=== PATIENT | female | born 2005 | race African-American/Black ===

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

== ENCOUNTER 2023-01-01 13:39 | Emergency (ER) | payer OTHER ==
[2023-01-01 13:44] VITALS: BP 104/74; PULSE 116; RESP 18; TEMP 98.2; BMI 23.3
== END 2023-01-01 16:30 | disposition left against medical advice (07) ==
LOC: JERFT 13:39
DX: O9A.211 Injury, poisoning and certain other consequences of external causes complicating pregnancy, first trimester (principal); S00.83XA Contusion of other part of head, initial encounter; R22.0 Localized swelling, mass and lump, head; H02.843 Edema of right eye, unspecified eyelid; H02.846 Edema of left eye, unspecified eyelid; Z3A.00 Weeks of gestation of pregnancy not specified
CPT/HCPCS: 70486-TC; 99284-25

== ENCOUNTER 2023-10-30 14:19 | Emergency (ER) | payer OTHER ==
[2023-10-30 14:44] VITALS: BP 105/66; PULSE 65; RESP 18; TEMP 98.6; BMI 22.8
[2023-10-30] MEDS ORDERED: ONDANSETRON 4 MG/2 ML VIAL ONE (16:04)
[2023-10-30] MEDS: ONDANSETRON 4 MG/2 ML VIAL IVPUSH ONE (16:52)
[2023-10-30 17:00] LABS: BASO % 0.4 % (0-2.0); EOS % 1.9 % (0-4.5); HEMATOCRIT 42.3 % (32.4-45.2); HEMOGLOBIN 14.1 GM/dL (10.7-15.3); LYMPH % 21.9 % (8-40); MCHC 33.4 g/dl (32.0-36.0); MEAN CELL VOLUME 80.9 fl (80-96); MEAN PLT VOLUME 7.6 fl (7.5-11.1); MONO % 7.8 % (3.8-10.2); PLATELET COUNT 323 10^3/uL (134-434); RBC 5.22 M/mm3 (3.60-5.2); RDW 13.7 % (11.6-15.6)
[2023-10-30] MEDS: SODIUM CHLORIDE 0.9% 500 ML INFUS.BAG IV ONE (17:01)
[2023-10-30 17:31] LABS: ALBUMIN 4.6 g/dl (3.4-5.0); CALCIUM 9.7 mg/dL (8.5-10.1)
[2023-10-30 17:35] LABS: CREATININE 0.6 mg/dL (0.55-1.3)
[2023-10-30 17:36] LABS: BILIRUBIN,TOTAL 0.6 mg/dL (0.2-1); TOT PROT 8.1 g/dl (6.4-8.2)
== END 2023-10-30 19:26 | disposition home or self-care (01) ==
LOC: JER 14:19
PROC: 3E033GC Introduction of Other Therapeutic Substance into Peripheral Vein, Percutaneous Approach (ICD-10-PCS; principal; 2023-10-30)
DX: O20.9 Hemorrhage in early pregnancy, unspecified (principal); O21.0 Mild hyperemesis gravidarum; Z3A.08 8 weeks gestation of pregnancy
CPT/HCPCS: 36415; 76817-TC; 80053; 84702; 85025; 99284-25

== ENCOUNTER 2023-10-31 21:09 | Emergency (ER) | payer OTHER ==
[2023-10-31 21:16] VITALS: BP 106/68; PULSE 105; RESP 20; TEMP 97.9; BMI 22.8
== END 2023-10-31 22:18 | disposition home or self-care (01) ==
LOC: JER 21:09
DX: O20.0 Threatened abortion (principal)
CPT/HCPCS: 99283-25

== ENCOUNTER 2023-12-07 19:36 | Emergency (ER) | payer OTHER ==
[2023-12-07 19:41] VITALS: BP 124/85; PULSE 99; RESP 20; TEMP 98.4; BMI 22.8
[2023-12-07 21:06] LABS: HEMATOCRIT 37.1 % (32.4-45.2); HEMOGLOBIN 12.3 GM/dL (10.7-15.3); MCH 26.7 pg (25.7-33.7); MCHC 33.1 g/dl (32.0-36.0); MEAN CELL VOLUME 80.7 fl (80-96); MEAN PLT VOLUME 7.6 fl (7.5-11.1); PLATELET COUNT 282 10^3/uL (134-434); RDW 13.8 % (11.6-15.6); WHITE BLOOD COUNT 9.3 K/mm3 (4.0-10.0)
[2023-12-07 21:22] LABS: POTASSIUM 3.8 mmol/L (3.5-5.1)
[2023-12-07 21:24] LABS: CALCIUM 8.9 mg/dL (8.5-10.1)
[2023-12-07 21:25] LABS: ALBUMIN 3.3 g/dl (3.4-5.0); BLOOD UREA NITROGEN 14.7 mg/dL (7-18)
[2023-12-07 21:28] LABS: CREATININE 0.6 mg/dL (0.55-1.3)
[2023-12-07 21:30] LABS: BILIRUBIN,TOTAL 0.2 mg/dL (0.2-1); TOT PROT 6.6 g/dl (6.4-8.2)
[2023-12-07 22:17] LABS: HIV INTERPRETATION NEGATIVE (NEGATIVE)
== END 2023-12-08 00:13 | disposition left against medical advice (07) ==
LOC: JER 19:36
DX: O20.9 Hemorrhage in early pregnancy, unspecified (principal); O26.892 Other specified pregnancy related conditions, second trimester; R10.30 Lower abdominal pain, unspecified; Z3A.14 14 weeks gestation of pregnancy
CPT/HCPCS: 36415; 76815; 80053; 84702; 85027; 86803; 86850; 86900; 86901; 87389; 99283-25

== ENCOUNTER 2024-05-31 05:45 | Inpatient (IN) | payer OTHER ==
[2024-05-31 07:12] VITALS: BMI 29.7
[2024-05-31 07:26] LABS: ABSOLUTE IMMATURE GRANULOCYTES 0.02 x10^3/uL (0.0-0.031); BASOPHILS # 0.03 x10^3/uL (0.01-0.08); EOSINOPHIL % 2.6 % (0.7-5.8); EOSINOPHILS # 0.23 x10^3/uL (0.04-0.36); HEMATOCRIT 31.7 % (34.1-44.9); HEMOGLOBIN 10.3 g/dL (11.2-15.7); MCHC 32.5 g/dl (32.2-35.5); MEAN CELL VOLUME 79.4 fl (79.4-94.8); MEAN PLT VOLUME 10.9 fl (9.4-12.3); MONOCYTE # 0.81 x10^3/uL (0.24-0.86); MONOCYTE % 9.1 % (4.7-12.5); PLATELET COUNT # 242 x10^3/uL (182-369); RDW 13.4 % (12.0-16.2)
[2024-05-31 07:35] LABS: INR 0.91 (0.83-1.09)
[2024-05-31 07:42] LABS: BLOOD UREA NITROGEN 14.5 mg/dL (7-18); CALCIUM 8.3 mg/dL (8.5-10.1)
[2024-05-31] MEDS ORDERED: PROMETHAZINE HCL 25 MG/1 ML VIAL ONE (07:43)
[2024-05-31] MEDS ORDERED: BUTORPHANOL TARTRATE 2 MG/ML VIAL ONE (07:43)
[2024-05-31] MEDS: ELECTROLYTE-148 SOLN 1,000 ML IV SCH (07:45)
[2024-05-31 07:46] LABS: CREATININE 0.6 mg/dL (0.55-1.3)
[2024-05-31] MEDS: PROMETHAZINE HCL 25 MG/1 ML VIAL IVPB ONE (07:50)
[2024-05-31] MEDS: BUTORPHANOL TARTRATE 2 MG/ML VIAL IVPB ONE (07:50)
[2024-05-31] MEDS ORDERED: OXYTOCIN 30 UNITS in 0.9% NS 30 UNIT/500 ML INFUS.BAG IVPB ONE (07:52)
[2024-05-31] MEDS: OXYTOCIN 30 UNITS in 0.9% NS 30 UNIT/500 ML INFUS.BAG IVPB SCH (08:15)
[2024-05-31] MEDS ORDERED: LABETALOL HCL 200 MG TABLET (FP) ONE ×2 (08:51→20:03)
[2024-05-31] MEDS: LABETALOL HCL 200 MG TABLET (FP) PO ONE (09:00)
[2024-05-31 10:50] LABS: POC NITRAZINE POS
[2024-05-31] MEDS ORDERED: FENTANYL/BUPIVACAINE/NS/PF - PCEA - 50 ML DISP.SYRIN EP ONE ×4 (11:37→19:06)
[2024-05-31] MEDS ORDERED: NALOXONE HCL 0.4 MG/ML VIAL IVPUSH PRN (12:09)
[2024-05-31] MEDS: FENTANYL/BUPIVACAINE/NS/PF - PCEA - 50 ML DISP.SYRIN EP SCH (12:21)
[2024-05-31] MEDS ORDERED: FENTANYL CITRATE/PF 50 MCG/ML VIAL ONE (19:05)
[2024-05-31] MEDS ORDERED: LIDO 2%/EPI 1:200000 PRESRVFRE (20 ML SDVIAL) ONE (19:05)
[2024-05-31] MEDS: LABETALOL HCL 200 MG TABLET (FP) PO PRN (20:05)
[2024-05-31] MEDS ORDERED: OXYTOCIN 20 UNITS in 0.9% NS 20 UNIT/1,000 ML INFUS.BAG IV ONE (20:51)
[2024-05-31] MEDS ORDERED: LIDOCAINE HCL 1% PRESERVATIVE FREE - 30ML VIAL ONE (20:51)
[2024-05-31] MEDS ORDERED: METHYLERGONOVINE MALEATE 0.2 MG/1 ML AMP IM PRN (21:49)
[2024-05-31] MEDS ORDERED: oxyCODONE HCL 5 MG TABLET PO PRN (21:49)
[2024-05-31] MEDS ORDERED: BENZOCAINE 28 GM HEMORRHOIDAL OINTMENT TP PRN (21:49)
[2024-05-31] MEDS ORDERED: WITCH HAZEL 50% (TUCKS) 40 PAD/JAR PAD TP PRN (21:49)
[2024-05-31] MEDS ORDERED: BISACODYL 10 MG SUPP.RECT RC PRN (21:49)
[2024-05-31] MEDS ORDERED: AMPICILLIN SODIUM 2 GM VIAL ONE (21:54)
[2024-05-31] MEDS ORDERED: AZITHROMYCIN IVPB 500 MG/250 ML BAG IVPB ONE (21:57)
[2024-05-31] MEDS: AMPICILLIN - 2 GM in SODIUM CHLORIDE 100 ML IVPB STA (21:58)
[2024-05-31] MEDS: AZITHROMYCIN IVPB 500 MG/250 ML BAG IVPB ONE (22:15)
[2024-05-31] MEDS: OXYTOCIN 20 UNITS in 0.9% NS 20 UNIT/1,000 ML INFUS.BAG IV SCH (22:15)
[2024-05-31] MEDS ORDERED: ACETAMINOPHEN 1000 MG/100 ML BAG IVPB PRN (22:32)
[2024-05-31] MEDS: ACETAMINOPHEN 1000 MG/100 ML BAG IVPB STA (22:45)
[2024-05-31 23:33] LABS: CORD BASE EXCESS -2.9 mmol/L (0-2); CORD HCO3 22.8 mmHg (20-29); CORD PCO2 42.7 mmHg (30-78); CORD pH 7.345 (7.14-7.44)
[2024-06-01 01:37] VITALS: RESP 18
[2024-06-01] MEDS: CLINDAMYCIN 900 MG PREMIX IVPB 900 MG/50 ML BAG IVPB SCH (01:44)
[2024-06-01] MEDS ORDERED: AMPICILLIN - 1 GM in SODIUM CHLORIDE 100 ML IVPB SCH (02:00)
[2024-06-01] MEDS: BENZOCAINE 20% 57 GM BOTTLE TP PRN (06:06)
[2024-06-01 07:03] LABS: HEMOGLOBIN 9.4 g/dL (11.2-15.7); MCHC 32.4 g/dl (32.2-35.5); MEAN CELL VOLUME 79.7 fl (79.4-94.8); MEAN PLT VOLUME 10.8 fl (9.4-12.3); PLATELET COUNT # 218 x10^3/uL (182-369); RDW 13.8 % (12.0-16.2)
[2024-06-01] MEDS: IBUPROFEN 600 MG TABLET (FP) PO PRN (09:04)
[2024-06-01] MEDS: FERROUS SO4 325 MG TABLET (FP) PO SCH (09:04)
[2024-06-01] MEDS: PRENATAL VITAMINS W/ FOLIC ACID TABLET (FP) PO SCH (11:30)
[2024-06-01] MEDS: ACETAMINOPHEN 325 MG TABLET (FP) PO PRN (16:53)
[2024-06-01] MEDS ORDERED: SENNOSIDES/DOCUSATE COMBO (SENNA PLUS) TABLET (UD) PO PRN (22:00)
[2024-06-02 10:14] VITALS: BP 125/80; PULSE 70; TEMP 98.2
== END 2024-06-02 14:40 | disposition home or self-care (01) | DRG 560 ==
LOC: JDEL 05:45 → JLDR 06:10 → J3W 06-01 01:20
PROVIDERS: ADMIT Obstetrics & Gynecology; ATTEND Obstetrics & Gynecology
PROC: 10E0XZZ Delivery of Products of Conception, External Approach (ICD-10-PCS; principal; 2024-05-31)
DX: O41.1230 Chorioamnionitis, third trimester, not applicable or unspecified (principal); Z3A.39 39 weeks gestation of pregnancy; Z37.0 Single live birth
CPT/HCPCS: 36415; 36600; 59409; 80048; 82803; 83986-QW; 85025; 85610; 85730; 86780; 86850; 86900; 86901; J0131